=== PATIENT | female | born 1960 | race Caucasian/White ===

== ENCOUNTER 2016-08-17 03:24 | Emergency (ER) | payer BC ==
--- NOTE | 2016-08-17 04:33 | EDM.PDOC ---
ED HPI RENAL/ - General Chief Complaint: Genitourinary Problem Stated Complaint: MEDICAL [facility] Time Seen by Provider: 08/17/16 03:43 Source: Reports: Patient, Old records, RN notes reviewed History Limitations: Reports: No limitations - History of Present Illness INITIAL COMMENTS - FREE TEXT/NARRATIVE: 55-year-old female presents emergency department today with heavy vaginal bleeding, she has been fairly regular with her menstruation over the last year the last couple months she's had increased irregularity with heavy vaginal bleeding, had an annual exam one week ago with her primary care blood work done included a CBC hepatitis C and lipid panel mammogram was within normal normal limits Pap smear done last year also within normal limits. 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 History: LMP 1 month ago Oncologic (Cancer) History: Reports: Malignant melanoma Other Oncologic History: L arm surgically removed - Infectious Disease History Infectious Disease History: Reports: Chicken pox Social & Family History - Tobacco Use Smoking Status *Q: Never Smoker - Caffeine Use Caffeine Use: Reports: Coffee - Recreational Drug Use Recreational Drug Use: No ED ROS GENERAL - Review of Systems Review Of Systems: See Below Constitutional: Reports: other (Lightheaded) HEENT: Reports: No symptoms Respiratory: Reports: No Symptoms Cardiovascular: Reports: No symptoms (1) GI/Abdominal: Reports: No symptoms : Reports: irregular menses Musculoskeletal: Reports: no symptoms Skin: Reports: no symptoms ED EXAM, RENAL/ - Physical Exam Exam: See Below Exam Limited By: No limitations General Appearance: alert, WD/WN, no apparent distress Respiratory/Chest: no respiratory distress, lungs clear, normal breath sounds, no accessory muscle use Cardiovascular: regular rate, rhythm, no murmur GI/Abdominal: soft, non tender (Female) Exam: Normal external exam, Normal speculum exam, Normal bimanual exam, Vaginal bleeding, Other (Done in the presence of nursing staff). No: Cervical lesions, Cervix motion tenderness, Enlarged uterus, Vaginal discharge, Vaginal lesions, Vaginal tears Course - Vital Signs Last Recorded V/S: Last Vital Signs Temp 98.1 F 08/17/16 03:25 Pulse 81 08/17/16 03:25 Resp 16 08/17/16 03:25 BP 136/96 H 08/17/16 03:25 Pulse Ox - Orders/Labs/Meds Labs: Laboratory Tests 08/17/16 08/17/16 08/17/16 Range/Units 03:53 03:53 03:53 WBC 5.7 (4.5-11.0) K/uL RBC 4.28 (3.30-5.50) M/uL Hgb 11.7 L (12.0-15.0) g/dL Hct 35.9 L (36.0-48.0) % MCV 84 (80-98) fL MCH 27 (27-31) pg MCHC 33 (32-36) % Plt Count 392 (150-400) K/uL Neut % (Auto) 60 (36-66) % Lymph % (Auto) 21 L (24-44) % [place] % (Auto) 14 H (2-6) % Eos % (Auto) 4 (2-4) % Baso % (Auto) 1 (0-1) % PT 10.2 (9.5-12.0) sec INR 0.96 (0.80-1.20) APTT 28.2 (27.0-36.0) sec TSH, Ultra Sensitive 1.551 (0.358-3.740) uIU/mL HCG, Quant 0 (0-6) mIU/mL Departure - Departure Time of Disposition: 05:16 Disposition: Home, Self-Care 01 Condition: good Clinical Impression: Vagina bleeding Forms: ED Department Discharge Additional Instructions: If heavy bleeding begins again recommend starting the medroxyprogesterone, Please followup with your primary care provider in 3-5 days if not better, please call return to the emergency department with worsening of symptoms. - Assessment/Plan Plan: Assessment Acuity = acute Site and laterality = menorrhagia Etiology = suspect starting of menopausal phase Manifestations = none Location of injury = home Lab values = hemoglobin low 11.7 consistent normochromic anemia INR normal 0.96 TSH normal at 1.55 and beta hCG was negative Plan I did review lab work with her she has had a decrease in vaginal bleeding while in the emergency department prescription was written for medroxyprogesterone 10 mg once day for 10 days and have her followup with her primary care next week for further evaluation Patient was in agreement with the plan all questions were answered, they were instructed to return to the emergency department or call for worsening symptoms. This note was dictated using [employer] voice recognition software please call with any questions.
[2016-08-17 04:37] VITALS: BP 136/96
== END 2016-08-17 05:45 | disposition home or self-care (01) ==
LOC: JP.ED 03:24
DX: N93.9 Abnormal uterine and vaginal bleeding, unspecified (principal); Z98.890 Other specified postprocedural states
CPT/HCPCS: 36415; 84443; 84702; 85025; 85610; 85730; 99284

== ENCOUNTER 2019-08-14 06:53 | Emergency (ER) | payer OTHER ==
--- NOTE | 2019-08-14 07:14 | EDM.PDOC ---
ED HPI GENERAL MEDICAL PROBLEM - General Chief Complaint: Skin Complaint Stated Complaint: CAT BITE Time Seen by Provider: 08/14/19 07:08 Source of Information: Reports: Patient History Limitations: Reports: No Limitations - History of Present Illness INITIAL COMMENTS - FREE TEXT/NARRATIVE: pt was bite by her own cat and the cat is up to date on the shots. The bite site is now red and swollen. The bite did occur on Thursday. Onset: Gradual, Other ( this has gradually gotten more red. 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 ) HEENT: Reports: No Symptoms Respiratory: Reports: No Symptoms Cardiovascular: Reports: No Symptoms Endocrine: Reports: No Symptoms GI/Abdominal: Reports: No Symptoms : Reports: No Symptoms Musculoskeletal: Reports: Other (pain in the lower leg. ) ED EXAM, SKIN/RASH Exam: See Below Text/Narrative:: pt has pain in the cat bite site on the left lower leg. Exam Limited By: No Limitations General Appearance: Alert Extremities: Other (pt has a cat bite which has redness on the left lower leg. This is mildly red. ) Neurological: Alert, Oriented, Normal Cognition Course - Vital Signs Last Recorded V/S: Last Vital Signs Temp 36.9 C 08/14/19 07:07 Pulse 88 08/14/19 07:07 Resp 13 08/14/19 07:07 BP 145/83 H 08/14/19 07:07 Pulse Ox 96 08/14/19 07:07 Departure - Departure Time of Disposition: 07:17 Disposition: Home, Self-Care 01 Condition: Fair Clinical Impression: Cat bite involving extremity - Discharge Information Referrals: PCP,None [Primary Care Provider] - Care Plan Goals: soak the area in soapy water, augmentin 875 bid for 10 days. rtc if problems. Sepsis Event Note - Evaluation Sepsis Screening Result: No Definite Risk - Focused Exam Vital Signs: Vital Signs Temp Pulse Resp BP Pulse Ox 08/14/19 07:07 36.9 C 88 13 145/83 H 96 08/14/19 07:06 36.9 C 88 13 145/83 H 96 Date Exam was Performed: 08/14/19 Time Exam was Performed: 07:08
== END 2019-08-14 07:33 | disposition home or self-care (01) ==
LOC: JP.ED 06:53
CPT/HCPCS: 99283

== ENCOUNTER 2023-06-15 09:24 | Observation (INO) | payer BC ==
[2023-06-15] MEDS ORDERED: Bupivacaine 0.5% 50 ML MDV ONE (09:47)
[2023-06-15] MEDS: Lidocaine 1% 20 ML MDV INJECT ONE (13:00)
[2023-06-15] MEDS ORDERED: Ondansetron 4 MG/2 ML SDV ONE (13:15)
[2023-06-15] MEDS ORDERED: Succinylcholine 200 MG/10 ML MDV ONE (13:15)
[2023-06-15] MEDS ORDERED: Dexamethasone 4 MG/ML SDV ONE (13:15)
[2023-06-15] MEDS ORDERED: Rocuronium 50 MG/5 ML Vial ONE (13:15)
[2023-06-15] MEDS ORDERED: Glycopyrrolate 0.2 MG/ML 5 ML MDV ONE (13:15)
[2023-06-15] MEDS ORDERED: Neostigmine Methylsulfate 10 MG/10 ML MDV ONE (13:15)
[2023-06-15] MEDS ORDERED: Midazolam 1 MG/ML 2 ML SDV ONE (13:15)
[2023-06-15] MEDS ORDERED: Propofol 200 MG/20 ML SDV ONE (13:15)
[2023-06-15] MEDS ORDERED: fentaNYL 50 MCG/ML SDV ONE (13:15)
[2023-06-15] MEDS ORDERED: fentaNYL 250 MCG/5 ML SDV ONE (13:15)
[2023-06-15] MEDS: Lactated Ringers 1,000 ML IV SCH (13:57)
[2023-06-15] MEDS: ceFAZolin 2 GM in Premix Bag 1 BAG IV ONE (14:06)
[2023-06-15] MEDS ORDERED: ceFAZolin 2 GM in Sodium Chloride 0.9% 100 ML IV ONE (14:15)
[2023-06-15] MEDS: Bupivacaine 0.5% 50 ML MDV ONE (14:39)
[2023-06-15] MEDS ORDERED: Lactated Ringers 1,000 ML IV ONE (16:14)
[2023-06-15] MEDS: Ondansetron 4 MG/2 ML SDV IVPUSH ONE (18:09)
[2023-06-15] MEDS: Acetaminophen/HYDROcodone 325-5 MG Tab PO ONE (18:28)
[2023-06-15] MEDS ORDERED: Sennosides/Docusate Sodium 50-8.6 MG Tab PO PRN (20:14)
[2023-06-15] MEDS: Scopalamine 1mg/3day Transdermal Patch TRDERM SCH (20:31)
[2023-06-15] MEDS: Ondansetron 4 MG/2 ML SDV IVPUSH PRN (22:30)
[2023-06-15] MEDS: Acetaminophen/HYDROcodone 325-5 MG Tab PO PRN (23:46)
[2023-06-16 12:21] VITALS: BP 109/57; PULSE 66
== END 2023-06-16 12:39 | disposition home or self-care (01) ==
LOC: JP.SDS 09:24 → JP.NM 09:24 → EDSTATUS 11:00 → JP.ICU 19:58 → JP.SDS 20:14 → JP.ICU 20:15
PROVIDERS: ADMIT Student in an Organized Health Care Education/Training Program; ATTEND Student in an Organized Health Care Education/Training Program
DX: C50.912 Malignant neoplasm of unspecified site of left female breast (principal); N60.82 Other benign mammary dysplasias of left breast; Z79.899 Other long term (current) drug therapy
CPT/HCPCS: 19281-26; 19281-LT; 76098; 76098-26; 76642-LT; 76642-LT-26; 78195; 78195-26; 88307; 88341; 88342; 88360; 96374; A9270-GY; A9541; G0378; J0330; J0665; J0690; J1100; J2250; J2405; J2704; J2710; J3010; J3490; J7120

== ENCOUNTER 2023-06-29 08:38 | Day surgery (SDC) | payer BC ==
[~2023-06-29 08:38] MED LIST: Bacitracin Oint 1 GM U/D Packet ONE
[2023-06-29] MEDS ORDERED: ceFAZolin 2 GM in Premix Bag 1 BAG IV ONE (08:45)
[2023-06-29] MEDS: Acetaminophen 500 MG Tab PO ONE (08:55)
[2023-06-29] MEDS: Lactated Ringers 1,000 ML IV SCH (09:24)
[2023-06-29] MEDS: Scopalamine 1mg/3day Transdermal Patch TOP SCH (09:42)
[2023-06-29] MEDS ORDERED: Midazolam 1 MG/ML 2 ML SDV ONE (09:59)
[2023-06-29] MEDS ORDERED: Propofol 200 MG/20 ML SDV ONE ×3 (09:59→11:50)
[2023-06-29] MEDS ORDERED: fentaNYL 50 MCG/ML SDV ONE (10:00)
[2023-06-29] MEDS ORDERED: Bupivacaine 0.5%/EPINEPHrine 1:200,000 50 ML MDV ONE (10:40)
[2023-06-29] MEDS ORDERED: Dexamethasone 4 MG/ML SDV ONE (10:59)
[2023-06-29] MEDS ORDERED: Ondansetron 4 MG/2 ML SDV ONE (10:59)
[2023-06-29] MEDS: Bupivacaine 0.5% 50 ML MDV ONE (11:01)
[2023-06-29] MEDS: Lidocaine 1% with EPINEPHrine 1:100,000 50 ML MDV ONE (11:01)
[2023-06-29] MEDS ORDERED: Lactated Ringers 1,000 ML ONE (11:50)
[2023-06-29] MEDS: hydrOXYzine HCL 100 MG/2 ML SDV IM ONE (12:28)
[2023-06-29] MEDS ORDERED: Ondansetron 4 MG/2 ML SDV IVPUSH PRN (13:17)
[2023-06-29] MEDS: Acetaminophen/HYDROcodone 325-5 MG Tab PO PRN (14:15)
[2023-06-29 14:49] VITALS: BP 123/73; PULSE 91
== END 2023-06-29 14:52 | disposition home or self-care (01) ==
LOC: JP.SDS 08:38
PROVIDERS: ATTEND Student in an Organized Health Care Education/Training Program
DX: C50.912 Malignant neoplasm of unspecified site of left female breast (principal); Z79.899 Other long term (current) drug therapy
CPT/HCPCS: 19301; 88307; 88341; 88342; A9270; J0665; J1100; J2250; J2405; J2704; J3010; J3410; J7120; J3490

== ENCOUNTER 2024-03-01 06:23 | Day surgery (SDC) | payer BC, MEDICARE, OTHER ==
[2024-03-01] MEDS ORDERED: Propofol 200 MG/20 ML SDV ONE (06:50)
[2024-03-01] MEDS ORDERED: Midazolam 1 MG/ML 2 ML SDV ONE (06:50)
[2024-03-01] MEDS ORDERED: fentaNYL 50 MCG/ML SDV ONE (06:51)
[2024-03-01] MEDS: Lactated Ringers 1,000 ML IV SCH (07:14)
[2024-03-01 08:32] VITALS: BP 110/64; PULSE 67
== END 2024-03-01 09:00 | disposition home or self-care (01) ==
LOC: JP.SDS 06:23
PROVIDERS: ATTEND Surgery
DX: Z12.11 Encounter for screening for malignant neoplasm of colon (principal)
CPT/HCPCS: 00812; 45378; J2250; J2704; J3010; J7120

== ENCOUNTER 2024-06-18 11:13 | Emergency (ER) | payer BC ==
[2024-06-18 11:36] VITALS: BP 137/76; PULSE 81
[2024-06-18 13:39] LABS: BASOPHILS ABSOLUTE AUTO 0.03 K/uL (0.00-0.10); BASOPHILS PERCENT AUTO 0.4 % (0.1-1.3); EOSINOPHILS ABSOLUTE AUTO 0.12 K/uL (0.00-0.40); EOSINOPHILS PERCENT AUTO 1.6 % (0.0-5.4); HEMATOCRIT 39.3 % (34.3-46.0); IMMATURE GRAN ABSOLUTE AUTO 0.03 K/uL (0.00-0.23); IMMATURE GRAN PERCENT AUTO 0.4 % (0.0-0.7); LYMPHOCYTES ABSOLUTE AUTO 0.75 K/uL (0.8-3.3); LYMPHOCYTES PERCENT AUTO 10.1 % (11.4-47.7); MEAN CORPUSCULAR HEMOGLOBIN 29.3 pg (31.6-35.5); MEAN CORPUSCULAR HGB CONC 33.1 g/dL (31.6-35.5); MEAN CORPUSCULAR VOLUME 88.7 fL (81.4-99.0); MONOCYTES ABSOLUTE AUTO 0.69 K/uL (0.20-0.90); MONOCYTES PERCENT AUTO 9.3 % (3.3-12.6); NEUTROPHILS ABSOLUTE AUTO 5.79 K/uL (1.0-7.6); NEUTROPHILS PERCENT AUTO 78.2 % (40.0-78.1); PLATELET COUNT,PLT 371 K/uL (130-375); RED BLOOD CELL COUNT 4.43 M/uL (3.77-5.24); WHITE BLOOD CELL COUNT,WBC 7.4 K/uL (3.2-11.0)
[2024-06-18 13:58] LABS: A/G RATIO 0.8 (1.2-2.2); ALANINE AMINOTRANSFERASE,ALT 26 U/L (12-78); ALBUMIN 3.1 g/dL (3.4-5.0); ALKALINE PHOSPHATASE 144 U/L (46-116); ASPARTATE AMNIOTRANSFERASE,AST 22 U/L (15-37); BILIRUBIN TOTAL 0.3 mg/dL (0.2-1.0); BLOOD UREA NITROGEN,BUN 13 mg/dL (7-18); C-REACTIVE PROTEIN 0.51 mg/dL (<0.50); CALCIUM 8.5 mg/dL (8.5-10.1); CARBON DIOXIDE,CO2 34 mmol/L (21-32); CHLORIDE,CL 103 mmol/L (100-108); CREATININE 0.9 mg/dL (0.6-1.0); EST CRCL DRUG DOSING (CG) 48.28 mL/min; ESTIMATED GFR 72 mL/min (>60); GLUCOSE RANDOM 91 mg/dL (74-106); POTASSIUM,K 4.3 mmol/L (3.6-5.2); PROTEIN TOTAL,TP 6.8 g/dL (6.4-8.2); SODIUM,NA 137 mmol/L (140-148)
[2024-06-18 14:01] LABS: LACTIC ACID 0.6 mmol/L (0.4-2.0)
[2024-06-18 14:02] LABS: ANION GAP 4.3 mmol/L (5.0-14.0)
== END 2024-06-18 14:52 | disposition home or self-care (01) ==
LOC: JP.ED 11:13
DX: K59.00 Constipation, unspecified (principal); Z79.899 Other long term (current) drug therapy; Z86.16 Personal history of COVID-19
CPT/HCPCS: 36415; 80053; 83605; 83690; 85025; 86140; 99284